=== PATIENT | female | born 1965 | race Hispanic/Latino ===

== ENCOUNTER → 2020-01-26 | Outpatient (CLI) | payer BC, OTHER | LOC: DX 14:31 → EDSTATUS 02-01 11:30 | PROVIDERS: ATTEND Internal Medicine | DX: Z01.818 Encounter for other preprocedural examination (principal); Z11.59 Encounter for screening for other viral diseases | CPT/HCPCS: 93005; U0002 ==

== ENCOUNTER → 2020-02-08 | Day surgery (SDC) | payer OTHER, BC ==
[~2020-02-08] MED LIST: FENTANYL CITRATE/PF 100MCG/2 ML INJ ONE; MIDAZOLAM HCL 2 MG/2 ML VIAL ONE; PROPOFOL IV EMULSION 10 MG/ML 20 ML VIAL ONE
[2020-02-08 12:50] VITALS: BP 111/64
== END | disposition home or self-care (01) ==
LOC: OR 09:17
PROVIDERS: ATTEND Internal Medicine
DX: Z12.11 Encounter for screening for malignant neoplasm of colon (principal); K62.1 Rectal polyp; K64.0 First degree hemorrhoids; E66.9 Obesity, unspecified; Z01.812 Encounter for preprocedural laboratory examination; Z11.59 Encounter for screening for other viral diseases; Z68.34 Body mass index [BMI] 34.0-34.9, adult
CPT/HCPCS: 36415; 45380; 84702; J2250; J2704; J3010; U0002; 45384